=== PATIENT | female | born 1980 | race Caucasian/White ===

== ENCOUNTER 2020-01-09 04:15 | Day surgery (SDC) | payer OTHER ==
[2020-01-06 11:24] VITALS: BMI 20.2
[2020-01-09] MEDS ORDERED: BUPIVACAINE HCL 200 ML ONE (07:40)
[2020-01-09] MEDS ORDERED: PROPOFOL 20 ML ONE ×3 (07:44→08:30)
[2020-01-09] MEDS ORDERED: MIDAZOLAM HCL 2 MG/2 ML SINGLE DOSE VIAL ONE (07:44)
[2020-01-09] MEDS ORDERED: ROCURONIUM BROMIDE 50 MG/5 ML SYRINGE ONE (07:44)
[2020-01-09] MEDS ORDERED: PROMETHAZINE HCL 25 MG/1 ML VIAL IVPB PRN (08:02)
[2020-01-09] MEDS ORDERED: IBUPROFEN 600 MG TABLET (FP) PO PRN (08:10)
[2020-01-09] MEDS ORDERED: ACETAMINOPHEN 325 MG TABLET (FP) PO PRN (08:10)
[2020-01-09] MEDS ORDERED: LACTATED RINGERS SOLUTION 1,000 ML IV SCH (08:15)
[2020-01-09] MEDS ORDERED: LIDOCAINE HCL/PF 2% SDV 5ML VIAL ONE (08:23)
[2020-01-09] MEDS ORDERED: DEXAMETHASONE SOD PHOSPHATE 4 MG/1 ML VIAL ONE (08:31)
[2020-01-09] MEDS ORDERED: GLYCOPYRROLATE 0.2 MG/1 ML VIAL ONE (09:02)
[2020-01-09] MEDS ORDERED: NEOSTIGMINE METHYLSULFATE 0.5 MG/ML - 10 ML MDV ONE (09:02)
[2020-01-09] MEDS ORDERED: BUPIVACAINE HCL/PF 0.5% (5MG/ML) 10 ML VIAL IJ ONE (09:27)
[2020-01-09 10:54] VITALS: PULSE 65
[2020-01-09 12:25] VITALS: BP 114/78; TEMP 98.8
== END 2020-01-09 12:00 | disposition home or self-care (01) ==
LOC: JASU-SURG 04:15
PROVIDERS: ATTEND Obstetrics & Gynecology
PROC: 0UT74ZZ Resection of Bilateral Fallopian Tubes, Percutaneous Endoscopic Approach (ICD-10-PCS; principal; 2020-01-09 08:00)
DX: Z30.2 Encounter for sterilization (principal); Z80.3 Family history of malignant neoplasm of breast; Z80.41 Family history of malignant neoplasm of ovary
CPT/HCPCS: 36415; 84703; 86850; 86900; 86901; 88302-TC; 94760